=== PATIENT | female | born 1935 | race Two or more races ===

== ENCOUNTER 2018-12-01 12:15 | Inpatient (IN) | payer OTHER ==
[~2018-12-01] VITALS: Ht 149.9 cm; Wt 43.1 kg
[2018-12-12] MEDS ORDERED: PROLIA60 MG/1 ML SUBCUTANEO (09:34)
[2018-12-30] MEDS ORDERED: LEVOTHYROXINE75 MCG PO (06:56)
[2018-12-30] MEDS ORDERED: NIFEDIPINE ER30 MG PO (06:56)
[2018-12-30] MEDS ORDERED: HYDRALAZINE HCL50 MG PO (06:56)
[2018-12-30] MEDS ORDERED: POLY119PG PO (06:56)
[2018-12-30] MEDS ORDERED: XOPENEX0.63 MG/3 IH (06:56)
[2018-12-30] MEDS ORDERED: CORGARD20 MG PO (06:56)
== END 2019-01-01 18:43 | disposition home or self-care (01) | DRG 350 ==
LOC: SURG 12:15 → O/R 12-07 11:00 → ICU 12-07 11:00 → MEDJ 12-27 20:35
PROVIDERS: ADMIT Surgery
PROC: 0YU54JZ Supplement Right Inguinal Region with Synthetic Substitute, Percutaneous Endoscopic Approach (ICD-10-PCS; 2018-12-07)
PROC: 0KXL0Z6 Transfer Left Abdomen Muscle, Transverse Rectus Abdominis Myocutaneous Flap, Open Approach (ICD-10-PCS; 2018-12-07)
PROC: 0KXK0Z6 Transfer Right Abdomen Muscle, Transverse Rectus Abdominis Myocutaneous Flap, Open Approach (ICD-10-PCS; 2018-12-07)
PROC: 0BH17EZ Insertion of Endotracheal Airway into Trachea, Via Natural or Artificial Opening (ICD-10-PCS; 2018-12-07)
PROC: 5A1955Z Respiratory Ventilation, Greater than 96 Consecutive Hours (ICD-10-PCS; 2018-12-07)
PROC: 4A033R1 Measurement of Arterial Saturation, Peripheral, Percutaneous Approach (ICD-10-PCS; 2018-12-07)
PROC: 3E0F7GC Introduction of Other Therapeutic Substance into Respiratory Tract, Via Natural or Artificial Opening (ICD-10-PCS; 2018-12-07)
PROC: 0WUF4JZ Supplement Abdominal Wall with Synthetic Substitute, Percutaneous Endoscopic Approach (ICD-10-PCS; principal; 2018-12-07 13:30)
PROC: B246ZZZ Ultrasonography of Right and Left Heart (ICD-10-PCS; 2018-12-08)
PROC: BW24ZZZ Computerized Tomography (CT Scan) of Chest and Abdomen (ICD-10-PCS; 2018-12-08)
PROC: B54DZZZ Ultrasonography of Bilateral Lower Extremity Veins (ICD-10-PCS; 2018-12-08)
PROC: 30233N1 Transfusion of Nonautologous Red Blood Cells into Peripheral Vein, Percutaneous Approach (ICD-10-PCS; 2018-12-11)
PROC: 02HV33Z Insertion of Infusion Device into Superior Vena Cava, Percutaneous Approach (ICD-10-PCS; 2018-12-11)
PROC: BW21ZZZ Computerized Tomography (CT Scan) of Abdomen and Pelvis (ICD-10-PCS; 2018-12-11)
PROC: 0BH17EZ Insertion of Endotracheal Airway into Trachea, Via Natural or Artificial Opening (ICD-10-PCS; 2018-12-17)
PROC: BW28ZZZ Computerized Tomography (CT Scan) of Head (ICD-10-PCS; 2018-12-26)
PROC: 4A12X4Z Monitoring of Cardiac Electrical Activity, External Approach (ICD-10-PCS; 2018-12-27)
DX: K43.0 Incisional hernia with obstruction, without gangrene (principal); J95.821 Acute postprocedural respiratory failure; J18.9 Pneumonia, unspecified organism; N17.8 Other acute kidney failure; J95.89 Other postprocedural complications and disorders of respiratory system, not elsewhere classified; D62 Acute posthemorrhagic anemia; J90 Pleural effusion, not elsewhere classified; J98.11 Atelectasis; Z99.11 Dependence on respirator [ventilator] status; J81.1 Chronic pulmonary edema; K40.90 Unilateral inguinal hernia, without obstruction or gangrene, not specified as recurrent; R09.02 Hypoxemia; I50.89 Other heart failure; E87.6 Hypokalemia; R13.19 Other dysphagia; D72.828 Other elevated white blood cell count; F43.20 Adjustment disorder, unspecified; I10 Essential (primary) hypertension; E21.2 Other hyperparathyroidism; I87.2 Venous insufficiency (chronic) (peripheral); I25.10 Atherosclerotic heart disease of native coronary artery without angina pectoris

== ENCOUNTER 2019-02-22 09:52 | Outpatient (CLI) | payer OTHER ==
[~2019-02-22 09:52] MED LIST: CORGARD20 MG PO; HYDRALAZINE HCL50 MG PO; LEVOTHYROXINE75 MCG PO; NIFEDIPINE ER30 MG PO; POLY119PG PO; PROLIA60 MG/1 ML SUBCUTANEO; XOPENEX0.63 MG/3 IH
== END 2019-02-22 10:58 | disposition home or self-care (01) ==
LOC: RAD 501 09:52
DX: R06.02 Shortness of breath (principal); R05 Cough

== ENCOUNTER 2019-05-31 10:23 | Outpatient (CLI) | payer OTHER | END 2019-05-31 10:30 | disposition home or self-care (01) | LOC: RAD 10:23 | DX: R05 Cough (principal); J45.30 Mild persistent asthma, uncomplicated ==